=== PATIENT | male | born 1940 | race African-American/Black ===

== ENCOUNTER 2018-10-17 15:23 | Inpatient (IN) | payer OTHER ==
[~2018-10-17] VITALS: Ht 177.8 cm; Wt 64.4 kg
[~2018-10-17 15:23] MED LIST: SODIUM CHLORIDE 0.9% INJ 3ML FLUSH IVF SCH
[2018-10-17] MEDS ORDERED: SODIUM CHLORIDE 0.9% 1,000 ML IV ONE (15:49)
[2018-10-17] MEDS ORDERED: ONDANSETRON HCL 4MG/2ML INJ IV ONE (16:00)
[2018-10-17 17:04] LABS: HEMATOCRIT. 38.8 % (42.0-52.0); HEMOGLOBIN. 12.6 g/dL (14.0-18.0); MEAN CORPUSCULAR HEMOGLOBIN 26.4 pg (28.0-32.0); MEAN CORPUSCULAR VOLUME 81.5 fL (80.0-94.0); MEAN PLATELET VOLUME 8.4 fl (7.4-10.4); PLATELET 201 x1000/uL (130-400); RED BLOOD CELL COUNT 4.76 mill/uL (4.7-6.1); RED CELL DISTRIBUTION WIDTH 20.7 % (11.6-14.6)
[2018-10-17 17:07] LABS: CHLORIDE 103 mEq/L (98-107)
[2018-10-17 17:08] LABS: INR 1.1; PARTIAL THROMBOPLASTIN TIME 27.1 sec (23.4-31.0); PROTHROMBIN TIME 11.5 sec (9.1-11.1)
[2018-10-17 17:25] LABS: PLATELET ESTIMATE NORMAL
[2018-10-17] MEDS ORDERED: ADENOSINE 3 MG/ML 2ML VIAL IV ONE ×3 (17:44→18:00)
[2018-10-17] MEDS ORDERED: SODIUM CHLORIDE 0.9% 1000ML BAG (SEPSIS BOLUS) IV ONE (17:45)
[2018-10-17] MEDS ORDERED: LEVOFLOXACIN 750MG PREMIX 150 ML IV ONE (17:45)
[2018-10-17] MEDS ORDERED: DILTIAZEM HCL 5MG/ML 5ML VIAL IV ONE ×2 (18:15→18:55)
[2018-10-17] MEDS ORDERED: DILTIAZEM HCL 30MG TABLET PO ONE (19:00)
[2018-10-17] MEDS ORDERED: DIPHENHYDRAMINE 50MG/ML VIAL IV PRN (21:45)
[2018-10-17] MEDS ORDERED: NA PHOS,M-B/NA PHOS,DI-BA ENEMA 118ML PR PRN (21:45)
[2018-10-17] MEDS ORDERED: DOCUSATE SODIUM 100MG CAPSULE PO PRN (21:45)
[2018-10-17] MEDS ORDERED: ACETAMINOPHEN 650MG SUPP PR PRN (21:45)
[2018-10-17] MEDS ORDERED: ACETAMINOPHEN 325MG TABLET PO PRN (21:45)
[2018-10-17] MEDS ORDERED: MAGNESIUM/ALUMINUM HYDROXIDE/SIMETHICONE 30ML UDC PO PRN (21:45)
[2018-10-17] MEDS ORDERED: LEVETIRACETAM 500MG PREMIX 100 ML IV ONE (21:45)
[2018-10-17] MEDS ORDERED: CLONIDINE 0.1MG TABLET PO PRN (21:45)
[2018-10-17] MEDS ORDERED: ONDANSETRON HCL 4MG/2ML INJ IV PRN (21:45)
[2018-10-17] MEDS ORDERED: GUAIFENESIN 200MG/10ML SUGAR FREE UDC PO PRN (21:45)
[2018-10-17] MEDS ORDERED: ACETAMINOPHEN 650MG/20.3ML UDC GT PRN (21:45)
[2018-10-17] MEDS ORDERED: IPRATROPIUM/ALBUTEROL 0.5-3(2.5)MG/3ML NEB INH PRN (21:45)
[2018-10-17] MEDS ORDERED: DEXAMETHASONE 10 MG/ML VIAL IV ONE (21:45)
[2018-10-17] MEDS ORDERED: DEXAMETHASONE 4MG/ML 1ML VIAL IV ONE (21:45)
[2018-10-17] MEDS ORDERED: GADOBENATE DIMEGLUMINE 529 MG/ML 10ML IV ONE (22:27)
[2018-10-18] VITALS (8 sets, daily range): BP systolic 85–131; BP diastolic 51–82
[2018-10-18] MEDS ORDERED: CEFTRIAXONE 1 G PREMIX 50 ML IV SCH (01:00)
[2018-10-18 06:09] LABS: BASOPHILS % 0.1 % (0.0-2.0); EOSINOPHILS % 0.1 % (0.0-5.0); HEMATOCRIT. 33.8 % (42.0-52.0); LYMPHOCYTES % 10.7 % (20.0-50.0); MEAN CORPUSCULAR HEMOGLOBIN 26.3 pg (28.0-32.0); MEAN CORPUSCULAR VOLUME 80.6 fL (80.0-94.0); MEAN PLATELET VOLUME 8.5 fl (7.4-10.4); NEUTROPHILS % 85.1 % (40.0-76.0); PLATELET 158 x1000/uL (130-400); RED BLOOD CELL COUNT 4.19 mill/uL (4.7-6.1); RED CELL DISTRIBUTION WIDTH 20.3 % (11.6-14.6)
[2018-10-18 06:24] LABS: CHLORIDE 108 mEq/L (98-107)
[2018-10-18] MEDS: DEXAMETHASONE 4MG/ML 1ML VIAL IV SCH ×3 (06:27→17:54)
[2018-10-18 06:36] LABS: CREATINE KINASE 77 IU/L (39-308); HDL CHOLESTEROL 50 mg/dL (40-59)
[2018-10-18 06:38] LABS: LDL CHOLESTEROL 64 mg/dL (5-100)
[2018-10-18 06:49] LABS: CREATINE KINASE MB FRACTION 1.9 ng/mL (0.5-3.6)
[2018-10-18 11:07] LABS: T4 FREE 1.29 ng/dL (0.76-1.46)
[2018-10-18] MEDS: SODIUM CHLORIDE 0.9% 1,000 ML IV SCH ×2 (12:02→21:38)
[2018-10-18 12:45] LABS: CLARITY URINE CLOUDY (CLEAR); COLOR URINE YELLOW (YELLOW); KETONES URINE TRACE (NEGATIVE); LEUKOCYTE ESTERASE URINE 2+ (NEGATIVE); NITRITE URINE POSITIVE (NEGATIVE); OCCULT BLOOD URINE TRACE (NEGATIVE); PROTEIN URINE TRACE (NEGATIVE); SPECIFIC GRAVITY URINE 1.019 (1.005-1.030); UROBILINOGEN URINE 0.2 E.U./dL (0.2-1.0)
[2018-10-18 13:17] LABS: *AMPHETAMINES SCREEN URINE NEGATIVE (NEGATIVE); *BARBITURATES SCREEN URINE NEGATIVE (NEGATIVE); *BENZODIAZEPINES SCREEN URINE NEGATIVE (NEGATIVE); *COCAINE SCREEN URINE NEGATIVE (NEGATIVE); METHADONE URINE SCREEN NEGATIVE (NEGATIVE); OPIATES URINE SCREEN PRESUMTIVE POSITIVE (NEGATIVE)
[2018-10-18 13:18] LABS: CANNABINOID URINE SCREEN NEGATIVE (NEGATIVE); PHENCYCLIDINE URINE SCREEN NEGATIVE (NEGATIVE)
[2018-10-18 15:14] LABS: CREATINE KINASE MB FRACTION 1.6 ng/mL (0.5-3.6)
[2018-10-18] MEDS ORDERED: SODIUM CHLORIDE 0.9% 500 ML IV ONE (17:25)
[2018-10-18] MEDS ORDERED: ALBUMIN HUMAN 25GM/100ML (25%) IV NR (21:00)
[2018-10-19] VITALS (11 sets, daily range): BP systolic 107–122; BP diastolic 67–82
[2018-10-19] MEDS: DEXAMETHASONE 4MG/ML 1ML VIAL IV SCH ×4 (00:58→18:04)
[2018-10-19] MEDS ORDERED: CEFTRIAXONE 1 G PREMIX 50 ML IV SCH (01:00)
[2018-10-19 01:27] LABS: CREATINE KINASE MB FRACTION 1.4 ng/mL (0.5-3.6)
[2018-10-19] MEDS: SODIUM CHLORIDE 0.9% INJ 3ML FLUSH IVF SCH ×3 (05:51→21:17)
[2018-10-19] MEDS ORDERED: DEXJ4 IV (07:16)
[2018-10-19 08:03] LABS: CHLORIDE 110 mEq/L (98-107); HEMATOCRIT 30.1 % (42.0-52.0); HEMOGLOBIN 9.7 g/dL (14.0-18.0); MEAN CORPUSCULAR HEMOGLOBIN 26.1 pg (28.0-32.0); MEAN CORPUSCULAR VOLUME 80.7 fL (80.0-94.0); PLATELET 162 x1000/uL (130-400); RED BLOOD CELL COUNT 3.74 mill/uL (4.7-6.1); RED CELL DISTRIBUTION WIDTH 19.8 % (11.6-14.6)
[2018-10-19] MEDS ORDERED: IOHEXOL-350 100 ML BOTTLE ONE (11:47)
[2018-10-19 12:56] LABS: CREATINE KINASE MB FRACTION 1.1 ng/mL (0.5-3.6)
[2018-10-19] MEDS: SODIUM CHLORIDE 0.9% 1,000 ML IV SCH (13:19)
[2018-10-19] MEDS ORDERED: IPRATROPIUM/ALBUTEROL 0.5-3(2.5)MG/3ML NEB HHN PRN (16:45)
[2018-10-19] MEDS ORDERED: IPRATROPIUM/ALBUTEROL 0.5-3(2.5)MG/3ML NEB HHN SCH (18:00)
== END 2018-10-19 22:55 | disposition short-term general hospital (02) | DRG 871 ==
LOC: ER 16:21 → 5EST 18:01 → ENRESERV 20:58 → 5EST 10-18 06:01
PROVIDERS: ADMIT Family Medicine; ATTEND Family Medicine
DX: A41.9 Sepsis, unspecified organism (principal); E43 Unspecified severe protein-calorie malnutrition; J18.9 Pneumonia, unspecified organism; I26.99 Other pulmonary embolism without acute cor pulmonale; G93.6 Cerebral edema; N39.0 Urinary tract infection, site not specified; N17.9 Acute kidney failure, unspecified; D68.59 Other primary thrombophilia; E87.2 Acidosis; I47.1 Supraventricular tachycardia; I10 Essential (primary) hypertension; R62.7 Adult failure to thrive; R22.2 Localized swelling, mass and lump, trunk; G90.8 Other disorders of autonomic nervous system; I95.9 Hypotension, unspecified; R26.9 Unspecified abnormalities of gait and mobility; E86.0 Dehydration; E89.0 Postprocedural hypothyroidism; I48.91 Unspecified atrial fibrillation; R13.10 Dysphagia, unspecified; Z85.841 Personal history of malignant neoplasm of brain; Z92.21 Personal history of antineoplastic chemotherapy; Z68.20 Body mass index [BMI] 20.0-20.9, adult
CPT/HCPCS: 36415; 70553; 71045; 71275; 78580; 80061; 80305; 82550; 82553; 83036; 83605; 83880; 84439; 84443; 84484; 85027; 85379; 87077; 87186; 93005; 93306; 93308; 93970; 96365; 96366; 96375; 99291; A9577; J0153; J0696; J1100; J1953; J1956; J2405; J3490; J7030; J7620; P9047; Q9967